=== PATIENT | male | born 1985 | race Caucasian/White ===

== ENCOUNTER 2019-02-01 11:26 | Inpatient (IN) | payer OTHER ==
[~2019-02-01] VITALS: Ht 175.3 cm; Wt 60.4 kg
--- NOTE | 2019-02-01 12:30 | NUR ---
The patient, RUSSELL MCKINLEY, 33 y/o, M admitted by MIGUEL BHATTI MD, was given written information regarding hospital policies, unit procedures and contact persons. Valuables were checked and noted. Patient arrived to unit at 1230. Patient direct admit from Dr. Bhatti's office. Patient A&OX4. Tachy on monitor. No complaints of pain at this time. Patient's girlfriend & baby at bedside. Dr. Bhatti & cardiology notified that patient has arrived. Will continue to monitor.
[2019-02-01] MEDS ORDERED: IV NORMAL SALINE 500ML BAG 500 ML IV ONE ×2 (13:00→14:00)
[2019-02-01 13:43] LABS: BASO # 0.1 x10^3/uL (0.0-0.2); BASO % 0 % (0-3); EOS # 0.1 x10^3/uL (0.0-0.7); EOS % 1 % (0-3); HEMATOCRIT 42.3 % (39.0-53.0); HEMOGLOBIN 14.3 g/dL (13.0-17.5); LYMPH # 1.6 x10^3/uL (1.0-4.8); LYMPH % 12 % (24-48); MEAN CORPUSCULAR HEMOGLOBIN 31 pg (25-35); MEAN CORPUSCULAR HGB CONC 34 g/dL (31-37); MEAN CORPUSCULAR VOLUME 93 fL (79-100); MONO # 0.9 x10^3/uL (0.0-1.1); MONO % 7 % (0-9); NEUT # 10.4 x10^3uL (1.8-7.7); NEUT % 80 % (31-73); PLATELET COUNT 326 x10^3/uL (140-400); RED BLOOD COUNT 4.54 x10^6/uL (4.30-5.70); RED CELL DISTRIBUTION WIDTH 13.4 % (11.5-14.5); WHITE BLOOD COUNT 13.1 x10^3/uL (4.0-11.0)
[2019-02-01 14:00] VITALS: BP 149/70
[2019-02-01 14:11] LABS: ALBUMIN 3.3 g/dL (3.4-5.0); ALBUMIN/GLOBULIN RATIO 0.7 (1.0-1.7); CALCIUM 9.6 mg/dL (8.5-10.1); CREATININE 0.8 mg/dL (0.7-1.3); GFR 110.7; POTASSIUM 4.2 mmol/L (3.5-5.1); TOTAL BILIRUBIN 0.3 mg/dL (0.2-1.0); TOTAL PROTEIN 7.8 g/dL (6.4-8.2)
--- NOTE | 2019-02-01 14:14 | CARD ---
MR#: [id number] Date of Study: 02/01/2019 Ordering Physician: MIGUEL DOCKERY, Referring Physician: MIGUEL DOCKERY, Tech: Merced Pichardo [facility] APPROVED REPORT EXAM: Two-dimensional and M-mode echocardiogram with Doppler and color Doppler. Other Information Quality : GoodHR: 115bpm Rhythm : Tachycardia INDICATION Arrhythmia 2D DIMENSIONS RVDd2.6 (2.9-3.5cm)Left Atrium(2D)2.7 (1.6-4.0cm) IVSd0.8 (0.7-1.1cm)Aortic Root(2D)3.0 (2.0-3.7cm) LVDd4.2 (3.9-5.9cm)LVOT Diameter1.9 (1.8-2.4cm) PWd0.7 (0.7-1.1cm)LVDs3.2 (2.5-4.0cm) FS (%) 23.2 %SV36.0 ml Aortic Valve AoV Peak Jean.129.3cm/sAoV VTI18.2cm AO Peak GR.6.7mmHgLVOT Peak Jean.81.0cm/s AO Mean GR.3mmHgAVA (VMAX)1.71cm2 ARELY (VTI)1.80cm2 Mitral Valve MV E Gjjxmpti73.4cm/sMV DECEL [id number] MV A Ybzwmwiw13.1cm/sE/A Ratio1.1 Pulmonary Valve PV Peak Iwskaenj63.8cm/s LEFT VENTRICLE The left ventricle is normal size. There is normal left ventricular wall thickness. Left ventricle sy stolic function is low normal. The Ejection Fraction is 50%. RIGHT VENTRICLE The right ventricle is normal size. There is normal right ventricular wall thickness. The right ventr icular systolic function is normal. ATRIA The left atrium size is normal. The right atrium size is normal. The interatrial septum is intact wit h no evidence for an atrial septal defect or patent foramen ovale as noted on 2-D or Doppler imaging. AORTIC VALVE The aortic valve is normal in structure and function. The aortic valve is trileaflet. Doppler and Col or Flow revealed no significant aortic regurgitation. There is no significant aortic valvular stenosi s. MITRAL VALVE The mitral valve is normal in structure and function. There is no evidence of mitral valve prolapse. There is no mitral valve stenosis. Doppler and Color Flow revealed no mitral valve regurgitation note d. TRICUSPID VALVE The tricuspid valve is normal in structure and function. Doppler and Color Flow revealed no tricuspid valve regurgitation noted. There is no tricuspid valve prolapse or vegetation. There is no tricuspid valve stenosis. PULMONIC VALVE The pulmonary valve is normal in structure and function. Doppler and Color Flow revealed no pulmonic valvular regurgitation. There is no pulmonic valvular stenosis. GREAT VESSELS The aortic root is normal in size. The ascending aorta is normal in size. The IVC is normal in size a nd collapses >50% with inspiration. PERICARDIAL EFFUSION There is no evidence of significant pericardial effusion. Critical Notification Critical Value: No <Conclusion> Left ventricle systolic function is low normal. The Ejection Fraction is 50%. No significant valvular abnormalities. There is no evidence of significant pericardial effusion. Signed by : Alexandru Kate, Electronically Approved : 02/01/2019 14:10:28
[2019-02-01] MEDS ORDERED: VENTOLIN HFA18 GM INH (14:29)
[2019-02-01] MEDS ORDERED: TIZA4TAB PO (14:29)
[2019-02-01] MEDS ORDERED: ASPI1TAB31 PO (14:52)
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
--- NOTE | 2019-02-01 15:00 | PDOC ---
Provider Note Provider Note Pt seen.H&P dictated. #[id number] MIGUEL DOCKERY MD Feb 01, 2019 15:00
[2019-02-01] MEDS ORDERED: CONTRAST GIVEN. MC PRN (15:15)
[2019-02-01] MEDS ORDERED: IOHEXOL 350 MG/ML 100 ML VIAL. IV ONE (15:15)
--- NOTE | 2019-02-01 15:33 | HP ---
ADMIT DATE: 02/01/2019 REASON FOR ADMISSION TO THE HOSPITAL: Tachycardia, dizziness, chest pain, possible atypical pneumonia. The patient was admitted to the hospital at [facility] on 01/24/2019 and he was anxious to go home. He said he was given Levaquin for 5 days, then next day he did get better, then he went to Emergency Room and in the Emergency Room, they did a blood test again, his white count was 15,000, came down to 13 and he did not want to stay in the hospital, he left home. He called me this morning, does not feeling well, he was seen in the office. He was tachycardic at 130 and he says feeling lightheaded, dizzy, chest pain. The patient was admitted to the hospital for further investigation and treatment. We did not have the reports when we admitted the patient, later on we get the reports from [facility], which shows that he may have some atypical pneumonia in the bilateral lower lobes. PAST MEDICAL HISTORY: Asthma. PAST SURGICAL HISTORY: He had a surgery done on the bowel, intestine, is not sure, couple of years ago. ALLERGIES: No allergies. MEDICATIONS: Given Levaquin, finished the course a couple of days ago on 01/29/2019. PERSONAL HISTORY: Denies smoking, alcohol, drug abuse. FAMILY HISTORY: Unremarkable. REVIEW OF SYSTEMS: Complains of not feeling well, dizzy, was lightheaded and chest pain, not up to his usual. His heart rate is usually around 80-90 and has been staying at 130 in the office. PHYSICAL EXAMINATION: GENERAL: Looks a little bit thicker. VITAL SIGNS: Temperature 98, pulse 120, respirations 15, blood pressure 149/70, 98% on room air. HEENT: Head is atraumatic. Pupils equal. Oral cavity: No congestion. NECK: Supple. CHEST: Symmetrical. CARDIOVASCULAR: S1, S2. LUNGS: Diminished breath sounds. ABDOMEN: Soft, no mass palpable. Scar of previous abdominal surgery in the midline. EXTREMITIES: No calf tenderness, no edema. Pulses 1+. NEUROLOGIC: Moving all extremities. No focal deficits noted. LABORATORY DATA: Shows a white count of 13, hemoglobin 14, platelets 326. Electrolytes show sodium normal ,potassium 4.2, BUN 12, creatinine 0.8, glucose 94. LFTs were normal. Chest x-ray not done yet. Echo shows a good left ventricular function. FINAL IMPRESSION: 1. Tachycardia. 2. Possible atypical pneumonia. Pt did not improve in spite of being in [facility] on 01/24/2019, again ER visit at on and because of failure of improvement Patient was admitted to the hospital, order echocardiogram, CT chest with contrast was ordered .Treat with Zithromax for atypical pneumonia send sputum and blood cultures and look for Legionella and Mycoplasma lung infections.Hydrate with IV fluids and see if tachycardia improves. MIGUEL DOCKERY MD DR: EM/tierney JOB#: [id number] / [id number] NICOLE
--- NOTE | 2019-02-01 15:39 | RAD ---
EXAM: Chest, 2 views. HISTORY: Tachycardia. COMPARISON: None. FINDINGS: 2 views the chest are obtained. There is no infiltrate, pleural effusion or pneumothorax. The heart is normal in size. IMPRESSION: No acute pulmonary finding. Electronically signed by: Kathy Kim MD (02/01/2019 3:36 PM) [place] [id number]
--- NOTE | 2019-02-01 15:50 | EKG ---
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
[2019-02-01] MEDS: AZITHROMYCIN 500 MG in IV NORMAL SALINE 250ML 250 ML IV SCH (15:52)
[2019-02-01] MEDS: NICOTINE 14MG PATCH. TD SCH (16:01)
[2019-02-01 16:12] VITALS: BP 146/88
[2019-02-01 16:16] LABS: INFLUENZA A PATIENT NEGATIVE (NEGATIVE); INFLUENZA B PATIENT NEGATIVE (NEGATIVE)
--- NOTE | 2019-02-01 16:17 | RAD ---
EXAM: CT chest with contrast - pulmonary embolus protocol CLINICAL HISTORY: TACHYCARDIA SINCE 01/22/19 ON ANF OFF WITH CHEST PAIN AND SHORTNESS OF BREATH COMPARISON: None. TECHNIQUE: CT of the chest following the administration of intravenous contrast during the pulmonary arterial phase. Axial, coronal and sagittal reformatted images were generated including MIP images. ---PQRS compliance statement - One or more of the following individualized dose reduction techniques were utilized for this study: 1. Automated exposure control 2. Adjustment of the mA and/or kV according to patient size 3. Use of iterative reconstruction technique--- FINDINGS: CHEST: Diagnostic quality: Adequate. Pulmonary emboli: None seen Right heart strain: None Pulmonary arteries: Normal in caliber. The heart is not enlarged. No pericardial effusion. Groundglass opacities in the right lower lobe and medial left lower lobe likely infectious/inflammatory in nature. No suspicious lung nodule or mass is seen. No pleural effusion or pneumothorax. Prominent bilateral hilar and mediastinal lymph nodes are seen, not enlarged by size criteria. Visualized Upper abdomen: Upper abdomen is grossly unremarkable. Bones: MIP reconstructions limited evaluation of the osseous structures. Within these constraints no definite erosive osseous lesion is identified. IMPRESSION: 1. No evidence for acute pulmonary embolus. 2. Bilateral groundglass opacities (right greater than left lower lobes) likely infectious/inflammatory in nature. Electronically signed by: Charly Womack MD (02/01/2019 4:14 PM) [facility]
[2019-02-01 16:31] LABS: BILIRUBIN,URINE NEGATIVE (NEG); CLARITY,URINE CLEAR; COLOR,URINE YELLOW; NITRITE,URINE NEGATIVE (NEG); PROTEIN,URINE NEGATIVE (NEG-TRACE); UROBILINOGEN,URINE 0.2 mg/dL (0.2 mg/dL)
[2019-02-01 16:46] LABS: BACTERIA,URINE 0 /HPF (0-FEW); RBC,URINE 0 /HPF (0-2); WBC,URINE 0 /HPF (0-4)
[2019-02-01] MEDS: IV NORMAL SALINE 1000ML BAG 1,000 ML IV SCH (17:56)
[2019-02-01 19:35] VITALS: BP 146/87
[2019-02-01 20:49] LABS: MYCOPLASMA PATIENT NEGATIVE (NEGATIVE)
[2019-02-01 20:57] LABS: BARBITURATES NEG (NEG); BENZODIAZEPINES NEG (NEG); CANNABINOIDS NEG (NEG); COCAINE NEG (NEG); METHADONE NEG (NEG); OPIATES NEG (NEG); PHENCYCLIDINE NEG (NEG)
[2019-02-01] MEDS: METOPROLOL TART IMMED RELEASE 25 MG TABLET. PO SCH (20:57)
[2019-02-01 21:01] LABS: AMPHETAMINE/METHAMPHETAMINE NEG (NEG)
[2019-02-01 23:00] VITALS: BP 115/76
[2019-02-02 03:00] VITALS: BP 123/60
[2019-02-02] MEDS: IV NORMAL SALINE 1000ML BAG 1,000 ML IV SCH (03:36)
[2019-02-02 07:00] VITALS: BP 119/63
[2019-02-02] MEDS: NICOTINE 14MG PATCH. TD SCH (08:24)
[2019-02-02] MEDS: METOPROLOL TART IMMED RELEASE 25 MG TABLET. PO SCH (08:25)
--- NOTE | 2019-02-02 10:09 | PDOC ---
PROGRESS NOTES Subjective Subjective pt feeling better wanting to g o home today Objective Objective Vital Signs Date Time Temp Pulse Resp B/P (MAP) Pulse Ox O2 Delivery O2 Flow Rate FiO2 02/02/19 08:25 93 120/60 02/02/19 08:00 Room Air 02/02/19 07:00 98.1 16 100 98.1 Intake and Output 02/02/19 07:00 Intake Total 800 ml Output Total 300 ml Balance 500 ml Intake Oral 800 ml Output Urine Total 300 ml Physical Exam Abdomen: Soft, No tenderness Heart: Normal S1, Normal S2, No murmurs, Other (tele ST; rate 110-120) Extremities: No edema, Normal pulses General: Alert, Oriented X3, Cooperative, No acute distress HEENT: Atraumatic, Mucous membr. moist/pink Lungs: Clear to auscultation, Normal air movement MUSCULOSKELETAL: No deformity Neuro: Normal speech, Sensation intact Psych/Mental Status: Mental status NL, Mood NL Skin: No significant lesion Assessment Assessment FINAL IMPRESSION: 1. Tachycardia. 2. Possible atypical pneumonia. Pt did not improve in spite of being on Levaquin for 5 days ,Pt was in [facility] on 01/24/2019, again ER visit at on and because of failure of improvement Patient was admitted to the hospital, order echocardiogram, CT chest with contrast was ordered .Treat with Zithromax for atypical pneumonia send sputum and blood cultures and look for Legionella and Mycoplasma lung infections.Hydrate with IV fluids and see if tachycardia improves. PLAN:iv zithromax. iv fluids cxr -ve ECHO 50 % ejf neg for Flue neg for mycoplasma blood c/s and sputum c/s neg lactic acid normal procalcitonin normal tachycardia improved on metoprolol. pt want to go home, for personal reasons urine drug screen neg Comment Review of Relevant I have reviewed the following items jorge (where applicable) has been applied. Labs Laboratory Tests Test 02/01/19 13:35 02/01/19 15:09 02/01/19 16:05 02/01/19 16:40 White Blood Count 13.1 x10^3/uL (4.0-11.0) Red Blood Count 4.54 x10^6/uL (4.30-5.70) Hemoglobin 14.3 g/dL (13.0-17.5) Hematocrit 42.3 % (39.0-53.0) Mean Corpuscular Volume 93 fL (79-100) Mean Corpuscular Hemoglobin 31 pg (25-35) Mean Corpuscular Hemoglobin Concent 34 g/dL (31-37) Red Cell Distribution Width 13.4 % (11.5-14.5) Platelet Count 326 x10^3/uL (140-400) Neutrophils (%) (Auto) 80 % (31-73) Lymphocytes (%) (Auto) 12 % (24-48) Monocytes (%) (Auto) 7 % (0-9) Eosinophils (%) (Auto) 1 % (0-3) Basophils (%) (Auto) 0 % (0-3) Neutrophils # (Auto) 10.4 x10^3uL (1.8-7.7) Lymphocytes # (Auto) 1.6 x10^3/uL (1.0-4.8) Monocytes # (Auto) 0.9 x10^3/uL (0.0-1.1) Eosinophils # (Auto) 0.1 x10^3/uL (0.0-0.7) Basophils # (Auto) 0.1 x10^3/uL (0.0-0.2) Sodium Level 141 mmol/L (136-145) Potassium Level 4.2 mmol/L (3.5-5.1) Chloride Level 101 mmol/L (98-107) Carbon Dioxide Level 32 mmol/L (21-32) Anion Gap 8 (6-14) Blood Urea Nitrogen 12 mg/dL (8-26) Creatinine 0.8 mg/dL (0.7-1.3) Estimated GFR (Cockcroft-Gault) 110.7 BUN/Creatinine Ratio 15 (6-20) Glucose Level 94 mg/dL (70-99) Calcium Level 9.6 mg/dL (8.5-10.1) Total Bilirubin 0.3 mg/dL (0.2-1.0) Aspartate Amino Transf (AST/SGOT) 26 U/L (15-37) Alanine Aminotransferase (ALT/SGPT) 53 U/L (16-63) Alkaline Phosphatase 113 U/L (46-116) Total Protein 7.8 g/dL (6.4-8.2) Albumin 3.3 g/dL (3.4-5.0) Albumin/Globulin Ratio 0.7 (1.0-1.7) Thyroid Stimulating Hormone (TSH) 3.780 uIU/mL (0.358-3.74) Mycoplasma Serology (LAB) Negative (NEGATIVE) Influenza Type A Antigen Negative (NEGATIVE) Influenza Type B Antigen Negative (NEGATIVE) Urine Collection Type Unknown Urine Color Yellow Urine Clarity Clear Urine pH 6.0 Urine Specific [place] >=1.030 Urine Protein Negative mg/dL (NEG-TRACE) Urine Glucose (UA) Negative mg/dL (NEG) Urine Ketones (Stick) Negative mg/dL (NEG) Urine Blood Negative (NEG) Urine Nitrite Negative (NEG) Urine Bilirubin Negative (NEG) Urine Urobilinogen Dipstick 0.2 mg/dL (0.2 mg/dL) Urine Leukocyte Esterase Negative (NEG) Urine RBC 0 /HPF (0-2) Urine WBC 0 /HPF (0-4) Urine Bacteria 0 /HPF (0-FEW) Urine Mucus Mod /LPF Urine Opiates Screen Neg (NEG) Urine Methadone Screen Neg (NEG) Urine Barbiturates Neg (NEG) Urine Phencyclidine Screen Neg (NEG) Urine Amphetamine/Methamphetamine Neg (NEG) Urine Benzodiazepines Screen Neg (NEG) Urine Cocaine Screen Neg (NEG) Urine Cannabinoids Screen Neg (NEG) Urine Ethyl Alcohol Neg (NEG) Lactic Acid Level 0.4 mmol/L (0.4-2.0) Procalcitonin < 0.10 ng/mL (0.00-0.10) Medications Current Medications Azithromycin 500 mg/Sodium Chloride 250 ml @ 250 mls/hr Q24H IV Last administered on 02/01/19at 15:52; Start 02/01/19 at 15:00 Info (CONTRAST GIVEN -- Rx MONITORING) 1 each PRN DAILY PRN MC SEE COMMENTS; Start 02/01/19 at 15:15; Stop 02/03/19 at 15:14 Iohexol (Omnipaque 350 Mg/ml) 90 ml 1X ONCE IV Last administered on 02/01/19at 15:41; Start 02/01/19 at 15:15; Stop 02/01/19 at 15:16; Status DC Metoprolol Tartrate (Lopressor) 25 mg BID PO Last administered on 02/02/19at 08: 25; Start 02/01/19 at 21:00 Nicotine (Nicoderm Cq 14mg) 1 patch DAILY TD Last administered on 02/02/19 08: 24; Start 02/01/19 at 16:00 Sodium Chloride 500 ml @ 500 mls/hr 1X ONCE IV Last administered on 02/01/19 14:15; Start 02/01/19 at 13:00; Stop 02/01/19 at 13:59; Status DC Sodium Chloride 500 ml @ 500 mls/hr 1X ONCE IV Last administered on 02/01/19at 15:53; Start 02/01/19 at 14:00; Stop 02/01/19 at 14:59; Status DC Sodium Chloride 1,000 ml @ 100 mls/hr Q10H IV Last administered on 02/02/19at 03 :36; Start 02/01/19 at 15:00 Vitals/I & O Vital Sign - Last 24 Hours 02/01/19 02/01/19 02/01/19 02/01/19 12:30 14:00 16:12 19:35 Temp 98.1 97.7 98.1 97.7 Pulse 120 107 128 Resp 15 20 B/P (MAP) 149/70 (96) 146/88 (107) 146/87 (106) Pulse Ox 98 97 O2 Delivery Room Air Room Air Room Air Room Air 02/01/19 02/01/19 02/01/19 02/02/19 19:55 20:57 23:00 03:00 Temp 97.7 97.9 97.7 97.9 Pulse 128 97 96 Resp 18 18 B/P (MAP) 146/87 115/76 (89) 123/60 (81) Pulse Ox 97 95 O2 Delivery Room Air Room Air Room Air 02/02/19 02/02/19 02/02/19 07:00 08:00 08:25 Temp 98.1 98.1 Pulse 89 93 Resp 16 B/P (MAP) 119/63 (81) 120/60 Pulse Ox 100 O2 Delivery Room Air Room Air Intake and Output 02/01/19 02/01/19 02/02/19 15:00 23:00 07:00 Intake Total 500 ml 300 ml Output Total 300 ml Balance 500 ml 0 ml MIGUEL DOCKERY MD Feb 02, 2019 10:09
[2019-02-02] MEDS ORDERED: METO25TA4 PO (10:11)
[2019-02-02] MEDS ORDERED: AZIT500T PO (10:11)
[2019-02-02] MEDS ORDERED: ASA/APAP/CAFFEINE 250/250/65MG TABLET. PO PRN (10:15)
[2019-02-02 11:00] VITALS: BP 112/64
--- NOTE | 2019-02-02 12:05 | NUR ---
SS following for discharge planning. SS reviewed pt chart. Pt is from home and is currently on room air. No discharge needs noted at this time. SS will continue to follow for pending discharge needs.
[2019-02-02] MEDS: AZITHROMYCIN 500 MG in IV NORMAL SALINE 250ML 250 ML IV SCH (12:51)
--- NOTE | 2019-02-02 14:37 | PDOC ---
PROGRESS NOTES Subjective Subjective Patient feeling better. Wants to go home. Objective Objective Vital Signs Date Time Temp Pulse Resp B/P (MAP) Pulse Ox O2 Delivery O2 Flow Rate FiO2 02/02/19 11:00 97.5 81 16 112/64 (80) 100 Room Air 97.5 Intake and Output 02/02/19 07:00 Intake Total 800 ml Output Total 300 ml Balance 500 ml Intake Oral 800 ml Output Urine Total 300 ml Physical Exam Abdomen: Soft, No tenderness Heart: Normal S1, Normal S2, No murmurs, Other (tele ST; rate 110-120) Extremities: No edema, Normal pulses General: Alert, Oriented X3, Cooperative, No acute distress HEENT: Atraumatic, Mucous membr. moist/pink Lungs: Clear to auscultation, Normal air movement MUSCULOSKELETAL: No deformity Neuro: Normal speech, Sensation intact Psych/Mental Status: Mental status NL, Mood NL Skin: No significant lesion Assessment Assessment 1. Sinus tachycardia, most probably physiologic. This has improved after initiation of beta blockers. 2-D echo showed LVEF 50%. CT scan of the chest did not show any pulmonary embolism but showed infiltrates suspicious for atypical pneumonia. Pulmonary team has been consulted. 2. Hypertension: Better controlled. Comment Review of Relevant I have reviewed the following items jorge (where applicable) has been applied. Labs Laboratory Tests Test 02/01/19 15:09 02/01/19 16:05 02/01/19 16:40 Influenza Type A Antigen Negative (NEGATIVE) Influenza Type B Antigen Negative (NEGATIVE) Urine Collection Type Unknown Urine Color Yellow Urine Clarity Clear Urine pH 6.0 Urine Specific [place] >=1.030 Urine Protein Negative mg/dL (NEG-TRACE) Urine Glucose (UA) Negative mg/dL (NEG) Urine Ketones (Stick) Negative mg/dL (NEG) Urine Blood Negative (NEG) Urine Nitrite Negative (NEG) Urine Bilirubin Negative (NEG) Urine Urobilinogen Dipstick 0.2 mg/dL (0.2 mg/dL) Urine Leukocyte Esterase Negative (NEG) Urine RBC 0 /HPF (0-2) Urine WBC 0 /HPF (0-4) Urine Bacteria 0 /HPF (0-FEW) Urine Mucus Mod /LPF Urine Opiates Screen Neg (NEG) Urine Methadone Screen Neg (NEG) Urine Barbiturates Neg (NEG) Urine Phencyclidine Screen Neg (NEG) Urine Amphetamine/Methamphetamine Neg (NEG) Urine Benzodiazepines Screen Neg (NEG) Urine Cocaine Screen Neg (NEG) Urine Cannabinoids Screen Neg (NEG) Urine Ethyl Alcohol Neg (NEG) Lactic Acid Level 0.4 mmol/L (0.4-2.0) Procalcitonin < 0.10 ng/mL (0.00-0.10) Medications Current Medications Acetaminophen/ Aspirin/Caffeine (Excedrin Migraine) 1 tab PRN Q6HRS PRN PO MIGRAINE HEADACHE Last administered on 02/02/19 10:49; Start 02/02/19 at 10:15 Azithromycin 500 mg/Sodium Chloride 250 ml @ 250 mls/hr Q24H IV Last administered on 02/02/19 12:51; Start 02/01/19 at 15:00 Info (CONTRAST GIVEN -- Rx MONITORING) 1 each PRN DAILY PRN MC SEE COMMENTS; Start 02/01/19 at 15:15; Stop 02/03/19 at 15:14 Iohexol (Omnipaque 350 Mg/ml) 90 ml 1X ONCE IV Last administered on 02/01/19at 15:41; Start 02/01/19 at 15:15; Stop 02/01/19 at 15:16; Status DC Metoprolol Tartrate (Lopressor) 25 mg BID PO Last administered on 02/02/19 08: 25; Start 02/01/19 at 21:00 Nicotine (Nicoderm Cq 14mg) 1 patch DAILY TD Last administered on 02/02/19 08: 24; Start 02/01/19 at 16:00 Sodium Chloride 1,000 ml @ 100 mls/hr Q10H IV Last administered on 02/02/19at 03 :36; Start 02/01/19 at 15:00 Vitals/I & O Vital Sign - Last 24 Hours 02/01/19 02/01/19 02/01/19 02/01/19 16:12 19:35 19:55 20:57 Temp 97.7 97.7 Pulse 107 128 128 Resp 20 B/P (MAP) 146/88 (107) 146/87 (106) 146/87 Pulse Ox 97 O2 Delivery Room Air Room Air Room Air 02/01/19 02/02/19 02/02/19 02/02/19 23:00 03:00 07:00 08:00 Temp 97.7 97.9 98.1 97.7 97.9 98.1 Pulse 97 96 89 Resp 18 18 16 B/P (MAP) 115/76 (89) 123/60 (81) 119/63 (81) Pulse Ox 97 95 100 O2 Delivery Room Air Room Air Room Air Room Air 02/02/19 02/02/19 08:25 11:00 Temp 97.5 97.5 Pulse 93 81 Resp 16 B/P (MAP) 120/60 112/64 (80) Pulse Ox 100 O2 Delivery Room Air Intake and Output 02/01/19 02/01/19 02/02/19 15:00 23:00 07:00 Intake Total 500 ml 300 ml Output Total 300 ml Balance 500 ml 0 ml NICK GONG MD Feb 02, 2019 14:36
[2019-02-02 15:00] VITALS: BP 114/61
[2019-02-02] MEDS ORDERED: PRED-220 PO ×2 (15:57→16:13)
[2019-02-02] MEDS ORDERED: BENZ100C PO ×2 (16:01→16:13)
--- NOTE | 2019-02-02 16:52 | NUR ---
Discharge Note: RUSSELL MCKINLEY [address] [place] [address] Discharge instructions and discharge home medications reviewed with Patient and a copy given. All questions have been answered and understanding verbalized. The following instructions and handouts were given: medication info, discharge instructions, tachycardia info. Discontinued lines and drains: Peripheral IV intact. Patient discharged to Home or Self Care with Significant Other via [facility] at 1650. Patient left without telling RN, but had signed his discharge paperwork & received prescriptions.
--- NOTE | 2019-02-03 03:37 | CONS ---
DATE OF CONSULTATION: 02/02/2019 ATTENDING PHYSICIAN: Evan Bhatti M.D. REASON FOR CONSULTATION: The patient seen in Pulmonary consultation at the request of Dr. Bhatti for abnormal CT chest. HISTORY OF PRESENT ILLNESS: The patient is a 33-year-old white male who was hospitalized at [facility] for dizziness, tachycardia and was treated for pneumonia. He then did improve, went to and was given additional 5 days of Levaquin. He presented to the Emergency Room with increasing shortness of breath, cough and fever. Cough, mostly nonproductive. He has a history of asthma. CT angiogram was obtained revealing basilar ground glass opacification. I was asked to see him in consultation. The patient states he is not feeling better. He denies fever or chills. PAST MEDICAL HISTORY: Mild intermittent asthma, uses albuterol on a p.r.n. basis. PAST SURGICAL HISTORY: He has had some abdominal surgery. ALLERGIES: No known drug allergies. MEDICATIONS: List was reviewed. SOCIAL HISTORY: He does smoke occasionally. FAMILY HISTORY: Unremarkable. REVIEW OF SYSTEMS: As indicated above, otherwise, a 10-point system was reviewed and negative. PHYSICAL EXAMINATION: VITAL SIGNS: Stable. O2 saturation was greater than 92%. HEENT: Eyes, the sclerae were nonicteric. NECK: Jugular venous distention was not elevated. No lymphadenopathy. CHEST: Full expansion. LUNGS: Adequate airway flow with no wheezes. CARDIOVASCULAR: Regular rate and rhythm with S1 and S2. No S3. ABDOMEN: Soft, nontender and nondistended. EXTREMITIES: No clubbing, cyanosis or edema. RADIOLOGICAL DATA: CT angiogram was reviewed. No evidence of PE. Ground glass opacification. LABORATORY DATA: Labs were reviewed. Serology for influenza was negative. Mycoplasma serology was likewise negative. Toxicology screen was negative. White count was elevated at 13.1. Electrolytes were noted. IMPRESSION: 1. Ground glass opacification secondary to inflammatory response, possible viral in nature. 2. Acute exacerbation of asthma secondary to above. 3. Tachycardia secondary to above. PLAN: 1. Discharge home today. 2. No need for further antibiotics. 3. Prednisone 30 mg x 5 days. 4. Tessalon Perles. 5. Continue p.r.n. albuterol. 6. Follow up with Dr. Bhatti. I do appreciate the privilege in sharing in the patient's care. AARON GASTON MD DR: KRYSTYNA/tierney JOB#: [id number] / [id number]
[2019-02-03] MEDS ORDERED: AZITHROMYCIN 250 MG TABLET. PO SCH (15:00)
--- NOTE | 2019-02-04 15:04 | PDOC ---
Provider Note Provider Note Discharge summary dictated.[id number] MIGUEL DOCKERY MD Feb 04, 2019 15:04
--- NOTE | 2019-02-04 17:20 | DS ---
DATE OF DISCHARGE: 02/02/2019 REASON FOR ADMISSION TO THE HOSPITAL: Tachycardia, viral pneumonia. CONSULTATIONS: 1. Dr. Kate. 2. Dr. Lazar. PROCEDURES DONE: 1. Echocardiogram. 2. CT chest. HOSPITAL COURSE: The patient is a 33-year-old male. The patient was at [facility] a week ago for 1 day and he was discharged. He was given Levaquin for cough, shortness of breath. The patient did not improve, went to the next day and recommended to keep him in the hospital, but he refused. Laboratory data, white count was at 13. He did not want to stay. Then, he saw me in the office a couple of days later, he finished 5 days of Levaquin and in spite of that he was feeling tired, weak as well as tachycardic. His heart rate was 130. The patient was admitted to the hospital, given fluids, had echocardiogram, shows 50% ejection fraction. Had a CT chest, shows some ground-glass opacities at the bases. Influenza test negative. Mycoplasma negative. Legionella negative. Blood cultures negative. Sputum negative. Was seen by Pulmonology who thought it could be a viral type of pneumonia. The patient was given a total of 3 days of IV Zithromax. The patient was discharged. FINAL DIAGNOSES: 1. Possible viral pneumonitis. 2. Tachycardia secondary to viral pneumonia. DISPOSITION: Discharged home. DISCHARGE INSTRUCTIONS: Follow up in the office in 1-2 weeks. We will repeat chest x-ray in 4 weeks. MIGUEL DOCKERY MD DR: EM/tierney JOB#: [id number] / [id number]
[2019-02-05 15:27] LABS: INFLUENZA A BY PCR Negative (Negative)
== END 2019-02-02 16:54 | disposition home or self-care (01) | DRG 202 ==
LOC: 2 NORTH 12:17
PROVIDERS: ADMIT Internal Medicine; ATTEND Internal Medicine
DX: J45.21 Mild intermittent asthma with (acute) exacerbation (principal); J18.9 Pneumonia, unspecified organism; F41.9 Anxiety disorder, unspecified; E03.9 Hypothyroidism, unspecified; I10 Essential (primary) hypertension; D72.829 Elevated white blood cell count, unspecified; Z83.3 Family history of diabetes mellitus; Z82.49 Family history of ischemic heart disease and other diseases of the circulatory system; F17.210 Nicotine dependence, cigarettes, uncomplicated
CPT/HCPCS: 36415; 71046; 71275; 80053; 80307; 81001; 83605; 84145; 84443; 85025; 86713; 86738; 87040; 87449; 87502; 87804; 93005; 93306; 99406; J0456; J7030; J7040; J7050; Q9967

== ENCOUNTER → 2019-06-07 | Outpatient (CLI) | payer OTHER ==
[~2019-06-07] MED LIST: ASPI1TAB31 PO; AZIT500T PO; BENZ100C PO; METO25TA4 PO; PRED-220 PO; TIZA4TAB PO; VENTOLIN HFA18 GM INH
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
== END | disposition home or self-care (01) ==
LOC: PNCL 10:00
PROVIDERS: ATTEND Anesthesiology
DX: M25.752 Osteophyte, left hip (principal); M40.294 Other kyphosis, thoracic region; Z87.891 Personal history of nicotine dependence; Z79.84 Long term (current) use of oral hypoglycemic drugs; Z79.899 Other long term (current) drug therapy
CPT/HCPCS: G0463